=== PATIENT | female | born 1960 | race Caucasian/White ===

== ENCOUNTER → 2019-03-26 | Outpatient (CLI) | payer MEDICARE, MEDICAID ==
[~2019-03-26] MED LIST: AMOX500T PO; ASPI-484 PO; ATEN-94 PO; AZIT500T PO; BACL10TA PO; CALC-76 PO; CHOL200074 PO; CILO100T PO; CILO50TA PO; CITA20TA6 PO; DIAZ5TAB4 PO; EZET10TA20 PO; FERR325T15 PO; HYDR-3105 PO; IBUP-1127 PO; LEVO25TA4 PO; MAGN500C9 PO; METR500T PO; MULT-186 PO; NIAC500C3 PO; OMEP40CA3 PO; POTA99TA15 PO; PRAV80TA2 PO; PROM25TA10 PO; TRIA1TAB3 PO; VITA1TAB PO; [UNRECOGNIZED DRUG - CODE] PO; [UNRECOGNIZED DRUG - CODE] PO
[2019-03-26 13:15] LABS: HEMOGLOBIN 14.4 g/dL (12.0-15.0); MEAN CELL HGB 30.6 pg (26-34); MEAN CELL HGB CONCENTRATION 33.2 g/dL (33-37); MEAN CORP VOLUME 92.1 fL (78-100); MEAN PLATELET VOLUME 9.4 fL (7.8-11.0); RED CELL DISTRIBUTION WIDTH 14.8 % (11.5-14.5); WHITE BLOOD CELL 6.7 10^3/uL (4.5-11.0)
[2019-03-26 13:41] LABS: CALCIUM 9.2 mg/dL (8.4-10.5)
== END | disposition home or self-care (01) ==
LOC: LAB 12:38
PROVIDERS: ATTEND Family Medicine
DX: I10 Essential (primary) hypertension (principal); I25.10 Atherosclerotic heart disease of native coronary artery without angina pectoris; E78.2 Mixed hyperlipidemia; E03.9 Hypothyroidism, unspecified; I73.9 Peripheral vascular disease, unspecified
CPT/HCPCS: 36415; 80053; 80061; 84436; 84443; 85027